=== PATIENT | male | born 1955 | race Asian ===

== ENCOUNTER 2023-08-09 22:14 | Emergency (ER) | payer OTHER ==
[~2023-08-09] VITALS: Ht 160 cm; Wt 65.8 kg
[2023-08-09 22:36] VITALS: BP 140/60; PULSE 73; RESP 18; TEMP 98.4; O2SAT 98
[2023-08-09] MEDS: diphenhydrAMINE 50 MG/ML VIAL IM ONE (23:10)
[2023-08-09] MEDS ORDERED: FEXO180T82 PO (23:57)
[2023-08-09 23:59] VITALS: BP 132/60; PULSE 74; RESP 18; TEMP 98.2; O2SAT 98
== END 2023-08-09 23:59 | disposition home or self-care (01) ==
LOC: MED 22:14
DX: L50.9 Urticaria, unspecified (principal); E11.9 Type 2 diabetes mellitus without complications; Z79.4 Long term (current) use of insulin; Z79.899 Other long term (current) drug therapy
CPT/HCPCS: 96372; 99283; J1200